=== PATIENT | female | born 1990 | race Caucasian/White ===

== ENCOUNTER 2021-01-22 23:14 | Inpatient (IN) | payer MEDICAID, OTHER ==
[~2021-01-22] VITALS: Ht 157.5 cm; Wt 75.7 kg
[2021-01-23] MEDS ORDERED: METHYLERGONOVINE MALEATE 0.2 MG/ML IM PRN (01:00)
[2021-01-23] MEDS ORDERED: LIDOCAINE HCL 1% 20ML VIAL (Pyxis) INJ INFIL SCH (01:00)
[2021-01-23] MEDS ORDERED: CARBOPROST TROMETHAMINE 250 MCG/ML AMPUL IM PRN (01:00)
[2021-01-23] MEDS ORDERED: NALOXONE HCL 0.4 MG/ML 1ML VIAL IM PRN (01:00)
[2021-01-23] MEDS ORDERED: ROPIVACAINE HCL/PF EPIDURAL 200 ML EP SCH (02:15)
[2021-01-23] MEDS: LACTATED RINGERS 1,000 ML IV SCH ×5 (02:37→21:14)
[2021-01-23] MEDS ORDERED: FENTANYL CITRATE/PF 50MCG/ML 2ML VIAL ONE ×3 (02:38→10:27)
[2021-01-23 03:51] LABS: INR 0.9; PARTIAL THROMBOPLASTIN TIME 28.4 sec (23.4-31.0); PROTHROMBIN TIME 10.1 sec (9.6-11.0)
[2021-01-23 04:02] LABS: *AMPHETAMINES SCREEN URINE NEGATIVE (NEGATIVE); *BARBITURATES SCREEN URINE NEGATIVE (NEGATIVE); *BENZODIAZEPINES SCREEN URINE NEGATIVE (NEGATIVE); *COCAINE SCREEN URINE NEGATIVE (NEGATIVE); METHADONE URINE SCREEN NEGATIVE (NEGATIVE)
[2021-01-23 04:03] LABS: CANNABINOID URINE SCREEN NEGATIVE (NEGATIVE); OPIATES URINE SCREEN NEGATIVE (NEGATIVE); PHENCYCLIDINE URINE SCREEN NEGATIVE (NEGATIVE)
[2021-01-23 04:03] LABS: BASOPHILS % 0.2 % (0.0-2.0); EOSINOPHILS % 0.8 % (0.0-5.0); HEMATOCRIT. 37.3 % (36.0-48.0); HEMOGLOBIN. 12.7 g/dL (12.0-16.0); LYMPHOCYTES % 19.9 % (20.0-50.0); MEAN CORPUSCULAR HEMOGLOBIN 31.3 pg (28.0-32.0); MEAN CORPUSCULAR VOLUME 91.9 fL (81.0-99.0); MEAN PLATELET VOLUME 9.3 fl (7.4-10.4); MONOCYTES % 6.4 % (2.0-8.0); NEUTROPHILS % 72.7 % (40.0-76.0); PLATELET 211 x1000/uL (130-400); RED BLOOD CELL COUNT 4.06 mill/uL (4.2-5.4); RED CELL DISTRIBUTION WIDTH 14.9 % (11.6-14.6)
[2021-01-23 04:29] LABS: HEPATITIS B SURFACE ANTIGEN NEGATIVE
[2021-01-23 04:40] LABS: KETONES URINE 1+ (NEGATIVE); OCCULT BLOOD URINE TRACE (NEGATIVE)
[2021-01-23 04:41] LABS: CLARITY URINE CLEAR (CLEAR); COLOR URINE YELLOW (YELLOW); LEUKOCYTE ESTERASE URINE NEGATIVE (NEGATIVE); NITRITE URINE NEGATIVE (NEGATIVE); PROTEIN URINE NEGATIVE (NEGATIVE); SPECIFIC GRAVITY URINE 1.007 (1.005-1.030); UROBILINOGEN URINE 0.2 E.U./dL (0.2-1.0)
[2021-01-23] MEDS: DEXT 5%/LR + PITOCIN 20UNITS/L 1,000 ML IV SCH ×2 (06:41→13:05)
[2021-01-23] MEDS ORDERED: MINERAL OIL 30ML BOTTLE PO NR (08:00)
[2021-01-23] MEDS: BUTORPHANOL TARTRATE 2 MG/ML VIAL IV PRN ×3 (09:08→13:12)
[2021-01-23] MEDS ORDERED: BUPIVACAINE HCL/PF 0.25% (2.5MG/ML) 10ML ONE ×2 (09:31→10:27)
[2021-01-23] MEDS ORDERED: HEMORRHOIDAL SUPP PR PRN (13:15)
[2021-01-23] MEDS ORDERED: BISACODYL 10MG SUPP PR PRN (13:15)
[2021-01-23] MEDS ORDERED: DEXT 5%/LR + PITOCIN 20UNITS/L 1,000 ML IV SCH (13:15)
[2021-01-23] MEDS ORDERED: BENZOCAINE/LANOLIN/ALOE VERA SPRAY TOP PRN (13:15)
[2021-01-23] MEDS ORDERED: GLYCERIN/WITCH HAZEL LEAF MEDICATED PAD TOP PRN (13:15)
[2021-01-23] MEDS ORDERED: LANOLIN OINT 7GM TUBE TOP PRN (13:15)
[2021-01-23] MEDS ORDERED: IBUPROFEN 400MG TABLET PO PRN (13:15)
[2021-01-23] MEDS ORDERED: ACETAMINOPHEN WITH CODEINE 300/30MG TABLET PO PRN (13:15)
[2021-01-23] MEDS ORDERED: DIPHENHYDRAMINE 25MG CAPSULE PO PRN (13:15)
[2021-01-23 14:15] VITALS: BP 100/52
[2021-01-23] MEDS: SIMETHICONE 80MG TABLET CHEW PO SCH ×2 (16:28→21:14)
[2021-01-23] MEDS: MAGNESIUM/ALUMINUM HYDROXIDE/SIMETHICONE 30ML UDC PO SCH ×2 (16:28→21:14)
[2021-01-23] MEDS: IBUPROFEN 800MG TABLET PO PRN ×2 (16:29→22:44)
[2021-01-23 16:59] VITALS: BP 104/56
[2021-01-23 19:30] VITALS: BP 98/58
[2021-01-23] MEDS: DOCUSATE SODIUM 100MG CAPSULE PO SCH (21:14)
[2021-01-24 04:00] VITALS: BP 95/44
[2021-01-24] MEDS ORDERED: MEASLES,MUMPS&RUBELLA VACCINE 1 VIAL SUBCUT ONE (05:00)
[2021-01-24] MEDS: MAGNESIUM/ALUMINUM HYDROXIDE/SIMETHICONE 30ML UDC PO SCH ×4 (07:30→21:46)
[2021-01-24 07:37] LABS: BASOPHILS % 0.2 % (0.0-2.0); EOSINOPHILS % 0.1 % (0.0-5.0); HEMATOCRIT. 28.3 % (36.0-48.0); HEMOGLOBIN. 9.5 g/dL (12.0-16.0); LYMPHOCYTES % 16.5 % (20.0-50.0); MEAN CORPUSCULAR HEMOGLOBIN 31.2 pg (28.0-32.0); MEAN CORPUSCULAR VOLUME 93.1 fL (81.0-99.0); MEAN PLATELET VOLUME 9.5 fl (7.4-10.4); MONOCYTES % 7.3 % (2.0-8.0); NEUTROPHILS % 75.9 % (40.0-76.0); PLATELET 175 x1000/uL (130-400); RED BLOOD CELL COUNT 3.04 mill/uL (4.2-5.4); RED CELL DISTRIBUTION WIDTH 15.1 % (11.6-14.6)
[2021-01-24] MEDS: SIMETHICONE 80MG TABLET CHEW PO SCH ×4 (08:00→21:45)
[2021-01-24 08:22] VITALS: BP 98/54
[2021-01-24] MEDS: PRENATAL VIT/FE FUMARATE/FA TABLET PO SCH (08:54)
[2021-01-24] MEDS: IBUPROFEN 800MG TABLET PO PRN ×2 (08:55→18:30)
[2021-01-24] MEDS: FERROUS SULFATE 325MG TABLET PO SCH ×3 (08:55→18:30)
[2021-01-24 16:11] VITALS: BP 114/56
[2021-01-24 20:00] VITALS: BP 96/53
[2021-01-24] MEDS: DOCUSATE SODIUM 100MG CAPSULE PO SCH (21:45)
[2021-01-25] MEDS: IBUPROFEN 800MG TABLET PO PRN (03:59)
[2021-01-25 04:00] VITALS: BP 98/52
[2021-01-25] MEDS: FERROUS SULFATE 325MG TABLET PO SCH (07:30)
[2021-01-25] MEDS: MAGNESIUM/ALUMINUM HYDROXIDE/SIMETHICONE 30ML UDC PO SCH ×2 (07:30→12:30)
[2021-01-25] MEDS ORDERED: FERR325T23 PO (07:43)
[2021-01-25] MEDS ORDERED: IBUP-2030 PO (07:43)
[2021-01-25] MEDS ORDERED: MULT-1116 MT (07:43)
[2021-01-25] MEDS: SIMETHICONE 80MG TABLET CHEW PO SCH (08:00)
[2021-01-25] MEDS: PRENATAL VIT/FE FUMARATE/FA TABLET PO SCH (08:35)
[2021-01-25 08:43] VITALS: BP 109/65
== END 2021-01-25 13:10 | disposition home or self-care (01) | DRG 560 ==
LOC: 8 EST LDRP 23:14 → OBSVTOIN 23:14 → 8 EST LDRP 23:25 → 8EST 01-23 14:14
PROVIDERS: ADMIT Obstetrics & Gynecology; ATTEND Obstetrics & Gynecology
PROC: 10D07Z6 Extraction of Products of Conception, Vacuum, Via Natural or Artificial Opening (ICD-10-PCS; principal; 2021-01-24)
PROC: 3E0R3BZ Introduction of Anesthetic Agent into Spinal Canal, Percutaneous Approach (ICD-10-PCS; 2021-01-24)
PROC: 00HU33Z Insertion of Infusion Device into Spinal Canal, Percutaneous Approach (ICD-10-PCS; 2021-01-24)
PROC: 0W8NXZZ Division of Female Perineum, External Approach (ICD-10-PCS; 2021-01-24)
DX: O69.81X0 Labor and delivery complicated by cord around neck, without compression, not applicable or unspecified (principal); Z37.0 Single live birth; D62 Acute posthemorrhagic anemia; O77.0 Labor and delivery complicated by meconium in amniotic fluid; O99.02 Anemia complicating childbirth; Z3A.37 37 weeks gestation of pregnancy
CPT/HCPCS: 36415; 76805; 76818; 80305; 81003; 85025; 86592; 86703; 86762; 86850; 86900; 87340; 90707; 99281; G0378; J0595; J2310; J2590; J2795; J3010; J3490; J7120; A4315